=== PATIENT | male | born 1995 | race African-American/Black ===

== ENCOUNTER 2018-01-07 14:06 | Emergency (ER) | payer SELFPAY ==
[~2018-01-07] VITALS: Ht 167.6 cm; Wt 70.0 kg
[2018-01-07 14:15] VITALS: BP 134/59; PULSE 103; RESP 15; TEMP 97.4; O2SAT 99
[2018-01-07] MEDS ORDERED: LIDOCAINE 1%/EPINEPHrine 1:100,000 SOLN 50 ML VIAL INFIL ONE (14:15)
--- NOTE | 2018-01-07 14:17 | PD ---
HPI Chief Complaint: INJURY Time Seen by Provider: 14:14 Travel History International Travel<30 days: No Contact w/Intl Traveler<30days: No Traveled to known affect area: No History of Present Illness HPI 22-year-old male presents under police custody for clearance to go to long term. He reports that he was arrested, got tackled into a brick wall. He has laceration of the left forehead. Denies loss of consciousness. He reports that he feels "great." Last tetanus vaccination 1 year ago. Denies pain, blurred vision, nausea or vomiting, numbness or tingling or weakness in extremities. No other complaints. 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 Reported Meds & Prescriptions Reported Meds & Active Scripts Active No Active Prescriptions or Reported Medications Review of Systems Except as stated in HPI: all other systems reviewed are Neg Physical Exam Narrative GENERAL: Well-developed well-nourished male who is agitated. SKIN: Warm and moist. 1.5 cm laceration left forehead superior to the eyebrow. HEAD: Skin as noted above normocephalic. EYES: Pupils equal and round reactive to light extraocular muscles are intact. No scleral icterus. No injection or drainage. ENT: No nasal bleeding or discharge. Mucous membranes pink and moist. No tenderness to palpation of the facial bones. NECK: Trachea midline. No JVD. CARDIOVASCULAR: Regular rate and rhythm. No murmur appreciated. RESPIRATORY: No accessory muscle use. Clear to auscultation. Breath sounds equal bilaterally. GASTROINTESTINAL: Abdomen soft, non-tender, nondistended. Hepatic and splenic margins not palpable. MUSCULOSKELETAL: No obvious deformities. No clubbing. No cyanosis. No edema. No tenderness to palpation to the neck, back, arms, legs, chest, pelvis. NEUROLOGICAL: Awake and alert. No obvious cranial nerve deficits. Motor grossly within normal limits. Normal speech. Data Data Last Documented VS Vital Signs Date Time Temp Pulse Resp B/P (MAP) Pulse Ox O2 Delivery O2 Flow Rate FiO2 01/07/18 14:15 97.4 103 15 134/59 (84) 99 Orders Orders Lidocai-Epi 1%-1:100,000 Inj (Xylocaine- (01/07/18 14:15) Ct Brain W/O Iv Contrast(Rout) (01/07/18 ) MDM Medical Decision Making Medical Screen Exam Complete: Yes Emergency Medical Condition: Yes Medical Record Reviewed: Yes Differential Diagnosis Cutaneous laceration, facial fracture, intracranial hemorrhage Narrative Course CT imaging of the brain was ordered however the patient is refusing the test. He is awake, alert and oriented, he is able to make that decision. I discussed the risks of intracranial bleeding and facial fracture with him and he verbalizes understanding. The laceration was prepped with Betadine and anesthetized with 1% lidocaine with epinephrine. It was thoroughly irrigated. Initially the patient consented to sutures however he declines now and would prefer Dermabond. He understands that Dermabond, while it will be able to close the wound, will not close the wound with as good affect as sutures and he still would prefer Dermabond. He is stable for discharge. Procedures Procedure Narrative LACERATION LOCATION: Left forehead LENGTH: 1 cm NUMBER OF STITCHES/ANA: Dermabond REPAIR: The area of the laceration was prepped with Betadine and sterilely draped. The laceration was infiltrated with 1% lidocaine with epinephrine. The wound was copiously irrigated and explored without evidence of foreign body , tendon injury or neurovascular injury. The wound was closed using Dermabond. This was a single layer repair. A sterile dressing was applied. The patient was advised to keep the dressing clean and dry. Patient tolerated the procedure well. Diagnosis Primary Impression: Facial laceration Additional Instructions: Keep the wound clean and dry. Do not put any creams or lotions in the wound. The glue will flake off on its own over the next few weeks. Med/Other Pt SpecificInfo: Wound Care Scripts No Active Prescriptions or Reported Meds Disposition: [address] LAW ENFORCEMNT Condition: Stable Garrett Romero January 07, 2018 14:17
[2018-01-07 15:35] VITALS: BP 132/52
== END 2018-01-07 15:47 ==
LOC: NEPD 14:06
DX: S01.81XA Laceration without foreign body of other part of head, initial encounter (principal); Y35.893A Legal intervention involving other specified means, suspect injured, initial encounter
CPT/HCPCS: 12011